=== PATIENT | male | born 1995 | race Caucasian/White ===

== ENCOUNTER 2017-01-01 01:33 | Emergency (ER) | payer OTHER ==
[~2017-01-01] VITALS: Ht 177.8 cm; Wt 74.5 kg
[2017-01-01 01:40] VITALS: Ht 177.8 cm; Wt 74.5 kg
[2017-01-01] MEDS ORDERED: LORAZEPAM 1 MG TAB PO ONE (02:00)
--- NOTE | 2017-01-01 02:00 | ERD ---
ER Documentation Chief Complaint Date/Time DATE: 01/01/17 TIME: 01:57 Chief Complaint drug overdose accidental- denies si/hi- took 3 wellbutrin at 100mg/tablet HPI 21-year-old male who presents to the emergency room with a description of anxiety. The patient states that he was taking energy supplements and caffeine drinks today because he was trying to "get some work done ". The patient also describes that he took 3 tablets of 100 mg Wellbutrin because he had missed yesterday's dosing. He states that he was not trying to hurt himself. The patient states that he is having palpitations and feeling anxious. He denies any seizures, no suicidal thoughts, no fevers or chills, no chest pain or shortness of breath, no leg swelling, no pleuritic pain. ROS All systems reviewed and are negative except as per history of present illness. Allergies Allergies: Coded Allergies: No Known Allergy (Unverified , 01/01/17) PMhx/Soc History of Surgery: Yes (hernia surgery) Hx Psychiatric Problems: Yes (anxiety disorder) Hx Alcohol Use: Yes Hx Substance Use: Yes (prescriptin drugs) Hx Tobacco Use: Yes Smoking Status: Current every day smoker FmHx Family History: No diabetes Physical Exam Vitals Vital Signs Date Time Temp Pulse Resp B/P Pulse Ox O2 Delivery O2 Flow Rate FiO2 01/01/17 01:40 97.8 124 20 133/80 100 Physical Exam General: Well developed, well nourished, extremely anxious Head: Normocephalic, atraumatic. Eyes: Pupils equally reactive, EOM intact ENT: Moist mucous membranes Neck: Supple, no lymphadenopathy Respiratory: Lungs clear bilaterally, no distress Cardiovascular: Tachycardia, no murmurs, rubs, or gallops Abdominal: Soft, non-tender, non-distended, no peritoneal signs : Deferred MSK: No edema, no unilateral swelling, 5/5 strength Neurologic: Alert and oriented, moving all extremities, normal speech, no focal weakness, no cerebellar signs Skin: No rash Psych: Anxious mood, no suicidal ideation Results 24 hrs Current Medications Medications (Trade) Dose Ordered Sig/Cy Route PRN Reason Start Time Stop Time Status Last Admin Dose Admin Lorazepam (Ativan) 1 mg ONCE ONCE PO 01/01/17 02:00 01/01/17 02:01 DC 01/01/17 01:58 Procedures/MDM EKG, MONITORS, & DIAGNOSTIC IMAGING: EKG: I reviewed and interpreted a 12-lead EKG. Rhythm: Normal sinus rhythm Ectopy: None Intervals: No abnormalities, normal QRS and QTC ST segments: No elevations or depressions T waves: No contiguous inversions MEDICAL DECISION MAKING: The patient presents to the emergency room with likely mild sympathomimetic toxidrome secondary to caffeine and energy supplements. Patient also took his regular Wellbutrin dosing, although he took all doses at the same time. The patient was not trying to hurt himself. Regarding the Wellbutrin ingestion I do not believe this is a toxic level. This is appropriate with his daily dose. Maximum daily dose of 450 mg. The patient has a normal EKG without QRS or QTC widening. No evidence of seizure activity. No indication for detoxification as the patient ingested this greater than 1 hour ago. The patient does not require prolonged observation. Regarding the caffeine, the patient does not have evidence of endorgan dysfunction. The patient will benefit from benzodiazepines and reassurance. I advised avoidance of repeat dosing of caffeine and the patient can be safely discharged from the emergency room. ER COURSE: The patient was provided with reassurance. His EKG showed no evidence of prolonged QRS or QTC. The patient's tachycardia, anxiety improved with Ativan. The patient can be safely discharged home. He is not a danger to himself or others. I kept the patient and/or family informed of laboratory and diagnostic imaging results throughout the emergency room course. DISPOSITION PLAN: We discussed follow up with the patient's primary care doctor within 24 to 48 hours as needed. We also discussed return to the emergency room for worsening symptoms or worsening condition. Outpatient referral: None required Departure Diagnosis: Primary Impression: Anxiety reaction Additional Impression: Accidental caffeine overdose Encounter type: initial encounter Qualified Code: T43.611A - Accidental caffeine overdose, initial encounter Condition: Stable Patient Instructions: Anxiety Reaction Referrals: COMM[facility]ITY CL[facility] YOU HAVE RECEIVED A MEDICAL SCREENING EXAM AND THE RESULTS INDICATE THAT YOU DO NOT HAVE A CONDITION THAT REQUIRES URGENT TREATMENT IN THE EMERGENCY DEPARTMENT. FURTHER EVALUATION AND TREATMENT OF YOUR CONDITION CAN WAIT UNTIL YOU ARE SEEN IN YOUR DOCTORS OFFICE WITHIN THE NEXT 1-2 DAYS. IT IS YOUR RESPONSIBILITY TO MAKE AN APPOINTMENT FOR FOLOW-UP CARE. IF YOU HAVE A PRIMARY DOCTOR --you should call your primary doctor and schedule an appointment IF YOU DO NOT HAVE A PRIMARY DOCTOR YOU CAN CALL OUR PHYSICIAN REFERRAL HOTLINE AT IF YOU CAN NOT AFFORD TO SEE A PHYSICIAN YOU CAN CHOSE FROM THE FOLLOWING [facility] [address] [facility] [address] [facility] [address] [facility] [address] [facility] [address] [facility]. [facility] [address] [facility]. [facility] YOU HAVE RECEIVED A MEDICAL SCREENING EXAM AND THE RESULTS INDICATE THAT YOU DO NOT HAVE A CONDITION THAT REQUIRES URGENT TREATMENT IN THE EMERGENCY DEPARTMENT. FURTHER EVALUATION AND TREATMENT OF YOUR CONDITION CAN WAIT UNTIL YOU ARE SEEN IN YOUR DOCTORS OFFICE WITHIN THE NEXT 1-2 DAYS. IT IS YOUR RESPONSIBILITY TO MAKE AN APPOINTMENT FOR FOLOW-UP CARE. IF YOU HAVE A PRIMARY DOCTOR --you should call your primary doctor and schedule and appointment IF YOU DO NOT HAVE A PRIMARY DOCTOR YOU CAN CALL OUR PHYSICIAN REFERRAL HOTLINE AT . IF YOU CAN NOT AFFORD TO SEE A PHYSICIAN YOU CAN CHOSE FROM THE FOLLOWING [facility]: [facility] [address] [place] [address] [facility] [address] [place] [address] [facility] [address] [place] [address] Additional Instructions: Call your primary care doctor TOMORROW for an appointment during the next 1 WEEK.Tell the racing secretary and handicapper that you were referred from this facility.See the doctor sooner or return here if your condition worsens before your appointment time. BRANDON EDWARDS MD Jan 01, 2017 02:00
== END 2017-01-01 02:16 | disposition home or self-care (01) ==
LOC: E/R 01:33
DX: F41.1 Generalized anxiety disorder (principal); F17.210 Nicotine dependence, cigarettes, uncomplicated; R00.2 Palpitations
CPT/HCPCS: 93005

== ENCOUNTER 2017-01-09 08:41 | Emergency (ER) | payer OTHER ==
[~2017-01-09] VITALS: Ht 185.4 cm; Wt 71.0 kg
[2017-01-09 08:43] VITALS: Ht 185.4 cm; Wt 71.0 kg
[2017-01-09 09:14] LABS: ADD SCAN DIFF NO
[2017-01-09 09:20] LABS: BASOPHIL # 0.1 10^3/ul (0.0-0.1); BASOPHILS % 1.2 % (0.0-2.0); EOSINOPHILS # 0.2 10^3/ul (0.0-0.5); EOSINOPHILS % 2.9 % (0.0-7.0); HEMATOCRIT 45.8 % (42.0-52.0); HEMOGLOBIN 15.9 g/dl (14.0-18.0); LYMPHOCYTES # 3.1 10^3/ul (0.8-2.9); LYMPHOCYTES % 45.2 % (15.0-51.0); MEAN CORPUSCULAR HEMOGLOBIN 31.1 pg (29.0-33.0); MEAN CORPUSCULAR HGB CONC 34.7 g/dl (32.0-37.0); MEAN CORPUSCULAR VOLUME 89.5 fl (82.0-101.0); MEAN PLATELET VOLUME 9.7 fl (7.4-10.4); MONOCYTE # 0.7 10^3/ul (0.3-0.9); MONOCYTES % 9.9 % (0.0-11.0); NEUTROPHIL # 2.8 10^3/ul (1.6-7.5); NEUTROPHILS % 40.5 % (39.0-77.0); PLATELET COUNT 241 10^3/UL (140-415); RED BLOOD COUNT 5.12 10^6/ul (4.70-6.10); RED CELL DISTRIBUTION WIDTH 12.3 % (11.5-14.5); WHITE BLOOD COUNT 6.9 10^3/ul (4.8-10.8)
[2017-01-09 09:31] LABS: ADD UMIC NO; URINE BILIRUBIN (Dip) NEGATIVE (NEGATIVE); URINE BLOOD (Dip) NEGATIVE (NEGATIVE); URINE COLOR LT. YELLOW (YELLOW); URINE GLUCOSE (Dip) NEGATIVE (NEGATIVE); URINE KETONES (Dip) NEGATIVE (NEGATIVE); URINE LEUKOCYTE ESTERASE (Dip) NEGATIVE (NEGATIVE); URINE NITRITE (Dip) NEGATIVE (NEGATIVE); URINE TOTAL PROTEIN (Dip) NEGATIVE (NEGATIVE); URINE UROBILINOGEN (Dip) 0.2 E.U./dL (0.1-1.0)
[2017-01-09] MEDS ORDERED: BUPR100T7 PO (09:32)
[2017-01-09] MEDS ORDERED: ESCI10TA48 PO (09:32)
[2017-01-09 09:40] LABS: ALANINE AMINOTRANSFERASE 33 IU/L (13-69); ALBUMIN 4.8 g/dl (3.3-4.9); ALBUMIN/GLOBULIN RATIO 1.84; ALKALINE PHOSPHATASE 63 IU/L (42-121); ANION GAP 12 (8-16); ASPARTATE AMINO TRANSFERASE 19 IU/L (15-46); BILIRUBIN,INDIRECT 2.5 mg/dl (0-1.1); BILIRUBIN,TOTAL 2.5 mg/dl (0.2-1.3); BLOOD UREA NITROGEN 18 mg/dl (7-20); CALCIUM 8.9 mg/dl (8.4-10.2); CARBON DIOXIDE 25 mmol/L (21-31); CHLORIDE 107 mmol/L (97-110); CREATININE 0.98 mg/dl (0.61-1.24); GLUCOSE 122 mg/dl (70-220); POTASSIUM 3.8 mmol/L (3.5-5.1); SODIUM 140 mmol/L (135-144); TOTAL PROTEIN 7.4 g/dl (6.1-8.1)
[2017-01-09 09:49] LABS: ACETAMINOPHEN < 10.0 ug/ml (10.0-30.0); ETHANOL < 10.0 mg/dl; SALICYLATE < 1.0 mg/dl (5.0-30.0)
[2017-01-09 10:03] VITALS: BP 136/70; PULSE 88; RESP 19; TEMP 97.6
[2017-01-09 10:06] LABS: BARBITURATES Negative (NEGATIVE); BENZODIAZEPINES Negative (NEGATIVE); COCAINE Negative (NEGATIVE); OPIATES Negative (NEGATIVE)
--- NOTE | 2017-01-09 10:06 | ERD ---
ER Documentation Chief Complaint Date/Time DATE: 01/09/17 TIME: 0854 Chief Complaint took 9 ativan all day yesterday HPI Presents to the emergency department for a questionable ingestion. Patient is a very poor historian providing limited insight. According to the patient, for the last few days he has been mixing his prescription medications including Ativan , Wellbutrin, Ambien. At this time he has no complaints including no suicidal or homicidal thoughts. ROS All systems reviewed and are negative except as per history of present illness. Medications Home Meds Reported Medications Escitalopram Oxalate* (Escitalopram Oxalate*) 10 Mg Tablet, 10 MG PO DAILY, #30 TAB 01/09/17 Bupropion Hcl* (Bupropion Hcl SR*) 100 Mg Tablet.sa, 100 MG PO DAILY, TAB.SA 01/09/17 Allergies Allergies: Coded Allergies: No Known Allergy (Unverified , 01/09/17) PMhx/Soc History of Surgery: Yes (hernia surgery) Hx Psychiatric Problems: Yes (anxiety disorder) Hx Alcohol Use: Yes Hx Substance Use: Yes (prescriptin drugs) Hx Tobacco Use: Yes Smoking Status: Never smoker FmHx Noncontributory for chief complaint Physical Exam Vitals Vital Signs Date Time Temp Pulse Resp B/P Pulse Ox O2 Delivery O2 Flow Rate FiO2 01/09/17 08:43 98.0 141 24 133/84 99 Physical Exam GENERAL: The patient is well developed and appropriate for usual state of health in no apparent distress HEENT: Pupils equal, round, and reactive to light. EOMI. There is no scleral icterus. NECK: C-spine is soft and supple, there is no meningismus. There is no cervical lymphadenopathy. LUNGS: Clear to auscultation bilaterally. There are no rales, wheezes or rhonchi. HEART: Regular rate and rhythm, no murmurs, clicks, rubs or gallops. ABDOMEN: Soft, non-tender, non-distended. There are bowel sounds in all four quadrants. No rebound or guarding. EXTREMITIES: There is no peripheral cyanosis or edema. No focal swelling or erythema. NEURO: The patient moves all four extremities with 5/5 strength. Cranial nerves II - XII are intact. Normal gait. Alert and oriented SKIN: There is no apparent rash or petechiae. HEME/LYMPHATIC: There is no evidence of excessive bruising or lymphedema. PSYCHIATRIC: Patient is sedated with psychomotor retardation. He has clear thought process, but slow. He is alert and oriented. He denies suicidal or homicidal thoughts. He denies auditory or visual hallucinations. Result Diagram: 01/09/1708 01/09/17 0908 Results 24 hrs Laboratory Tests Test 01/09/17 09:08 01/09/17 09:21 White Blood Count 6.910^3/ul Red Blood Count 5.1210^6/ul Hemoglobin 15.9g/dl Hematocrit 45.8% Mean Corpuscular Volume 89.5fl Mean Corpuscular Hemoglobin 31.1pg Mean Corpuscular Hemoglobin Concent 34.7g/dl Red Cell Distribution Width 12.3% Platelet Count 13844^3/UL Mean Platelet Volume 9.7fl Neutrophils % 40.5% Lymphocytes % 45.2% Monocytes % 9.9% Eosinophils % 2.9% Basophils % 1.2% Nucleated Red Blood Cells % 0.0/100WBC Neutrophils # 2.810^3/ul Lymphocytes # 3.110^3/ul Monocytes # 0.710^3/ul Eosinophils # 0.210^3/ul Basophils # 0.110^3/ul Nucleated Red Blood Cells # 0.010^3/ul Sodium Level 140mmol/L Potassium Level 3.8mmol/L Chloride Level 107mmol/L Carbon Dioxide Level 25mmol/L Anion Gap 12 Blood Urea Nitrogen 18mg/dl Creatinine 0.98mg/dl Glucose Level 122mg/dl Calcium Level 8.9mg/dl Total Bilirubin 2.5mg/dl Direct Bilirubin 0.00mg/dl Indirect Bilirubin 2.5mg/dl Aspartate Amino Transf (AST/SGOT) 19IU/L Alanine Aminotransferase (ALT/SGPT) 33IU/L Alkaline Phosphatase 63IU/L Total Protein 7.4g/dl Albumin 4.8g/dl Globulin 2.60g/dl Albumin/Globulin Ratio 1.84 Salicylates Level < 1.0mg/dl Acetaminophen Level < 10.0ug/ml Ethyl Alcohol Level < 10.0mg/dl Urine Color LT. YELLOW Urine Clarity CLEAR Urine pH 6.0 Urine Specific [place] >=1.030 Urine Ketones NEGATIVE Urine Nitrite NEGATIVE Urine Bilirubin NEGATIVE Urine Urobilinogen 0.2 E.U./dL Urine Leukocyte Esterase NEGATIVE Urine Hemoglobin NEGATIVE Urine Glucose NEGATIVE% Urine Total Protein NEGATIVE Procedures/MDM Patient was taken to a room, seen and evaluated. Comfort measures were initiated. Diagnostic tests were ordered and reviewed. REEVALUATION: Patient was observed in the emergency department for approximately 2 hours during which time his tachycardia improved. He showed no signs of significant toxic concerns related to his ingestions. He was able to access a care plan for himself, continue denies suicidal and homicidal thoughts and was able to be discharged home. MEDICAL DECISION MAKIN-year-old male presents with what appears to be a nontoxic ingestion of multiple prescription medications. This does not appear to be a suicidal gesture. Patient's toxidrome indicates a mixed ingestion versus mixed ingestion and withdrawal. However, patient shows no signs of significant cardiac, neurologic or other high-risk concerns. Overall, after educating the patient on the need to take these medications more carefully, he appears appropriate for outpatient care. Departure Diagnosis: Primary Impression: Drug use Condition: Stable Patient Instructions: Drug Abuse: Prescribed Narcotics And Sedatives Additional Instructions: Take your prescription medication only as prescribed and do not mix them. Return for any problems or concerns CURTIS CADET Jan 09, 2017 10:06
[2017-01-09 10:09] LABS: CANNABINOIDS Positive (NEGATIVE)
== END 2017-01-09 10:08 | disposition home or self-care (01) ==
LOC: E/R 08:41
DX: F13.90 Sedative, hypnotic, or anxiolytic use, unspecified, uncomplicated (principal); Z87.891 Personal history of nicotine dependence
CPT/HCPCS: 36415; 80053; 80306; 80307; 81003; 85025; 99283